=== PATIENT | female | born 2000 | race Caucasian/White ===

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

== ENCOUNTER → 2020-06-20 | Outpatient (CLI) | payer OTHER ==
[2020-06-22 14:30] LABS: CORONAVIRUS (COVID19) CSH-NRL Negative (Negative)
== END | disposition home or self-care (01) ==
LOC: LAB 16:30
PROVIDERS: Physician Assistant
DX: Z20.828 Contact with and (suspected) exposure to other viral communicable diseases (principal)
CPT/HCPCS: U0003

== ENCOUNTER → 2020-11-23 | Outpatient (CLI) | payer OTHER | END | disposition home or self-care (01) | LOC: LAB 10:50 → LAB SHORT 10:50 | DX: R30.0 Dysuria (principal) | CPT/HCPCS: 87086 ==

== ENCOUNTER 2023-06-01 10:53 | Day surgery (SDC) | payer OTHER ==
[~2023-06-01] VITALS: Ht 168 cm; Wt 137.5 kg
[2023-06-01] VITALS (13 sets, daily range): BP systolic 117–144; BP diastolic 64–85
[~2023-06-01 10:53] MED LIST changes: +ALLEGRA ALLERG180 MG PO; +BUPR150ER PO; +BUTALB-ACETAMI1 EAC7 PO; +Flonase 0.05% N16 GM; +GABA100 PO; +HYDHCL25 PO; +Inderal60 MG PO; +MONT10T PO; +Prozac40 MG PO; +VITAMIN D310 MC4 PO
[2023-06-01] MEDS ORDERED: ONDA4ODT MM (11:18)
[2023-06-01] MEDS ORDERED: TRAZ50 PO (11:18)
[2023-06-01] MEDS ORDERED: Bentyl20 MG PO (11:19)
--- NOTE | 2023-06-01 11:40 | NUR ---
History, Chart, Medications and Allergies reviewed before start of procedure. Patient confirms NPO status and agrees with scheduled surgery. Patient reports completing Chlorhexadine shower X2 prior to admission to hospital. Surgical site prepped with 2% Chlorhexidine cloth wipe. Pre-Op teaching done. Pt verbalizes understanding. Patient States Post-Procedure ride home has been arranged.
--- NOTE | 2023-06-01 17:45 | NUR ---
Discharge instructions reviewed with patient. Patient verbalizes understanding. Copy given to patient to take home. Dressing to procedure site clean, dry, intact with no visible drainage, swelling, erythema or bruising noted. Patient States Post-Procedure ride home has been arranged. Discharged via wheelchair to private car for ride home.
== END 2023-06-01 17:45 | disposition home or self-care (01) ==
LOC: ORSCMMR 10:53 → ORD 12:00 → ORSCMMR 17:45
PROVIDERS: Obstetrics & Gynecology
PROC: 0UBF4ZX Excision of Cul-de-sac, Percutaneous Endoscopic Approach, Diagnostic (ICD-10-PCS; principal; 2023-06-01 12:00)
PROC: 0UB04ZX Excision of Right Ovary, Percutaneous Endoscopic Approach, Diagnostic (ICD-10-PCS; principal; 2023-06-01 12:00)
DX: N80.3C1 Endometriosis of the right uterosacral ligament, unspecified depth (principal); D27.0 Benign neoplasm of right ovary; R00.0 Tachycardia, unspecified; Z79.899 Other long term (current) drug therapy; F41.8 Other specified anxiety disorders; E66.01 Morbid (severe) obesity due to excess calories; Z68.42 Body mass index [BMI] 45.0-49.9, adult
CPT/HCPCS: 88305; A9270; J1100; J1170; J1885; J2405; J2704; J3010; J7120

== ENCOUNTER 2023-08-27 14:47 | Emergency (ER) | payer OTHER ==
[~2023-08-27] VITALS: Ht 167.6 cm; Wt 139.2 kg
[~2023-08-27 14:47] MED LIST changes: -Norco 5-325 Ta1 EACH PO
[2023-08-27 15:07] VITALS: BP 122/64
[2023-08-27] MEDS ORDERED: Ondansetron HCl 2 MG / ML 2ML Vial IV ONE (15:10)
[2023-08-27 15:44] LABS: BASOPHILS ABSOLUTE AUTO 0.05 K/mm3 (0.00-0.23); BASOPHILS PERCENT AUTO 1 % (0-2); EOSINOPHILS PERCENT AUTO 5 % (0-6); Hematocrit 39.8 % (33.0-51.0); Hemoglobin 13.1 g/dL (11.5-16.0); IMMATURE GRAN ABSOLUTE AUTO 0.03 K/mm3 (0.00-0.10); IMMATURE GRAN PERCENT AUTO 0 % (0-1); LYMPHOCYTES ABSOLUTE AUTO 3.42 K/mm3 (0.84-5.20); LYMPHOCYTES PERCENT AUTO 37 % (21-46); MONOCYTES ABSOLUTE AUTO 0.66 K/mm3 (0.16-1.47); MONOCYTES PERCENT AUTO 7 % (4-13); Mean Corpuscular HGB 27.8 pg (26.0-34.0); Mean Corpuscular HGB Conc 32.9 g/dL (31.5-36.5); Mean Corpuscular Volume 84 fL (80-100); Mean Platelet Volume 9.2 fL (9.1-12.4); NEUTROPHILS ABSOLUTE AUTO 4.59 K/mm3 (1.96-9.15); NEUTROPHILS PERCENT AUTO 50 % (41-73); Platelet Count 376 K/mm3 (150-400); RDW Coefficient Variation 12.3 % (11.7-14.2); RDW Standard Deviation 37.3 fL (35.1-46.3); Red Blood Cell Count 4.72 M/mm3 (3.80-5.20); White Blood Cell Count 9.25 K/mm3 (4.00-11.30)
[2023-08-27 15:58] LABS: Albumin, Blood 3.8 g/dL (3.4-5.0); Bilirubin, Total 0.2 mg/dL (0.1-1.0); Bun/Creatinine Ratio 13.6 (12.0-20.0); Calcium, Blood 9.6 mg/dL (8.5-10.1); Creatinine, Blood 0.59 mg/dL (0.40-1.00); Globulin, Blood 3.7 g/dL (2.2-4.0); Potassium, Blood 3.9 mmol/L (3.5-5.5); Total Protein, Blood 7.5 g/dL (6.4-8.2)
[2023-08-27 16:21] LABS: Source, Urine Clean Catch
[2023-08-27] MEDS ORDERED: Ketorolac Tromethamine 15mg Vial IV ONE (16:40)
[2023-08-27 16:49] LABS: Appearance, Urine Hazy (Clear); Bilirubin, Urine Neg (Neg); Blood, Urine 1+ (Neg); Color, Urine Yellow (P-Yellow); Glucose Qualitative, Urine Neg (Neg); Ketones, Urine Neg (Neg); Leukocyte Esterase, Urine 1+ (Neg); Nitrite, Urine Neg (Neg); Protein, Urine Neg (Neg); Urobilinogen, Urine NORM (Normal)
[2023-08-27 17:06] LABS: Bacteria Many /hpf; Squamous Epithelial Cells Mod /hpf (Few)
[2023-08-27 17:07] LABS: Transitional Epithelial Cells Few /hpf (0-Rare)
[2023-08-27] MEDS ORDERED: Norco 5-325 Ta1 EACH PO (17:27)
== END 2023-08-27 17:31 | disposition home or self-care (01) ==
LOC: ER 14:47
PROVIDERS: Physician Assistant
DX: R10.9 Unspecified abdominal pain (principal); Q64.8 Other specified congenital malformations of urinary system; F32.A Depression, unspecified; Z87.442 Personal history of urinary calculi; Z88.1 Allergy status to other antibiotic agents; Z79.51 Long term (current) use of inhaled steroids; Z79.899 Other long term (current) drug therapy
CPT/HCPCS: 76770; 80053; 81001; 81025; 85025; 87086; 96374; 96375; 99284-25; J1885; J2405

== ENCOUNTER → 2023-08-27 | Outpatient (CLI) | payer OTHER ==
[~2023-08-27] MED LIST changes: +Bentyl20 MG PO; +Norco 5-325 Ta1 EACH PO; +ONDA4ODT MM; +TRAZ50 PO
[2023-08-27 09:02] LABS: Albumin, Blood 3.8 g/dL (3.4-5.0); Anion Gap 11 mmol/L (6-16); Blood Urea Nitrogen 8 mg/dL (8-24); Bun/Creatinine Ratio 9.4 (12.0-20.0); CO2, Blood 24 mmol/L (21-32); Calcium, Blood 9.2 mg/dL (8.5-10.1); Chloride, Blood 106 mmol/L (98-108); Creatinine, Blood 0.85 mg/dL (0.40-1.00); Glomerular Filtration Rate 99 (60-); Glucose, Blood 95 mg/dL (70-99); Phosphorus, Blood 4.4 mg/dL (2.5-4.9); Sodium, Blood 141 mmol/L (136-145)
== END | disposition home or self-care (01) ==
LOC: LAB 08:49 → LAB SHORT 08:49
PROVIDERS: Family Medicine
DX: Z09 Encounter for follow-up examination after completed treatment for conditions other than malignant neoplasm (principal); Z87.442 Personal history of urinary calculi
CPT/HCPCS: 80069

== ENCOUNTER → 2023-11-05 | Outpatient (CLI) | payer OTHER ==
[~2023-11-05] MED LIST changes: +Norco 5-325 Ta1 EACH PO
[2023-11-05 20:28] LABS: Bacterial Vaginosis PCR Negative (NEGATIVE); Candida Group, PCR NOT DETECTED (NOT DETECT); Candida glabrata-krusei, PCR NOT DETECTED (NOT DETECT)
== END | disposition home or self-care (01) ==
LOC: LAB SHORT 12:00 → LAB 12:00
PROVIDERS: Family Medicine
DX: N89.8 Other specified noninflammatory disorders of vagina (principal); R30.0 Dysuria
CPT/HCPCS: 87086; 87481; 87661; 87801

== ENCOUNTER 2023-12-27 12:40 | Day surgery (SDC) | payer OTHER ==
[~2023-12-27] VITALS: Ht 167.6 cm; Wt 140.1 kg
[~2023-12-27 12:40] MED LIST changes: +Lactated Ringer's 1,000 ML IV ONE
[2023-12-27] MEDS ORDERED: Bentyl20 MG (13:08)
[2023-12-27] MEDS ORDERED: IBUP800 (13:08)
[2023-12-27] MEDS ORDERED: MIRALAX1714 (13:09)
[2023-12-27] MEDS ORDERED: DULCOLAX5 MG (13:09)
[2023-12-27] MEDS ORDERED: LOPE2C (13:09)
[2023-12-27] MEDS ORDERED: Lactated Ringer's 1,000 ML IV ONE (13:51)
[2023-12-27] MEDS ORDERED: propofoL 50 ML IV ONE ×2 (14:52→15:11)
[2023-12-27 15:54] VITALS: BP 124/88
== END 2023-12-27 15:48 | disposition home or self-care (01) ==
LOC: ORSCSDS 12:40
PROVIDERS: Internal Medicine Gastroenterology
PROC: 0DB68ZX Excision of Stomach, Via Natural or Artificial Opening Endoscopic, Diagnostic (ICD-10-PCS; principal; 2023-12-27 13:45)
PROC: 0DB98ZX Excision of Duodenum, Via Natural or Artificial Opening Endoscopic, Diagnostic (ICD-10-PCS; principal; 2023-12-27 13:45)
DX: R10.13 Epigastric pain (principal); R11.0 Nausea; K76.0 Fatty (change of) liver, not elsewhere classified; K58.2 Mixed irritable bowel syndrome; I10 Essential (primary) hypertension; E66.01 Morbid (severe) obesity due to excess calories; Z68.43 Body mass index [BMI] 50.0-59.9, adult; Z79.899 Other long term (current) drug therapy
CPT/HCPCS: 88305; 88342; J2704; J7120

== ENCOUNTER → 2024-07-17 | Outpatient (CLI) | payer OTHER ==
[~2024-07-17] MED LIST changes: +Bentyl20 MG; +DULCOLAX5 MG; +IBUP800; +LOPE2C; -Lactated Ringer's 1,000 ML IV ONE; +MIRALAX1714
[2024-07-17 12:03] LABS: Source, Urine Clean Catch
[2024-07-17 13:23] LABS: Appearance, Urine Hazy (Clear); Bilirubin, Urine Neg (Neg); Blood, Urine Neg (Neg); Color, Urine Yellow (P-Yellow); Glucose Qualitative, Urine Neg (Neg); Ketones, Urine Neg (Neg); Leukocyte Esterase, Urine 2+ (Neg); Nitrite, Urine Neg (Neg); Protein, Urine 1+ (Neg); Urobilinogen, Urine 1+ (Normal)
[2024-07-17 13:35] LABS: Bacteria Many /hpf; Red Blood Cells, Urine 0-2 /hpf (0-2); Squamous Epithelial Cells Few /hpf (Few)
== END ==
LOC: LAB SHORT 11:59 → LAB 11:59
PROVIDERS: Obstetrics & Gynecology
DX: R39.9 Unspecified symptoms and signs involving the genitourinary system (principal)
CPT/HCPCS: 81001; 87086; G0123

== ENCOUNTER 2025-02-02 12:12 | Day surgery (SDC) | payer OTHER ==
[~2025-02-02] VITALS: Ht 167.6 cm; Wt 99.2 kg
[2025-02-02] VITALS (16 sets, daily range): BP systolic 111–133; BP diastolic 66–84
[~2025-02-02 12:12] MED LIST changes: +ACET500 PO; +Budeprion Xl300 MG PO; +DULOXETINE HCL60 M1 PO; +FAMO40 PO; -GABA100 PO; +GABA600 PO; -IBUP800; +IBUP800 PO; +LC-655118 MG PO; +LESSINA-28 TAB1 EACH PO; +NAPR220 PO; +OMEGA-3 FISH O1 EA21; +OXYCODONE-ACET1 EAC3 PO; +RIZATRIPTAN10 M3 PO; +TRAM50 PO; +TURMERIC500 M2; +ZANAFLEX413 PO; +ZEBUTAL 50-3251 EAC1 PO; +ZEPBOUND10 MG/0.5 SC
[2025-02-02] MEDS ORDERED: HYOS.125 SL (12:42)
--- NOTE | 2025-02-02 12:54 | NUR ---
DR ORTIZ AT BEDSIDE SPEAKING WITH PATIENT.
--- NOTE | 2025-02-02 13:21 | NUR ---
PATIENT CARE TURNED OVER TO CARYL FERNANDES RN. REPORT GIVEN.
[2025-02-02] MEDS ORDERED: Midazolam HCl 1MG / ML 2ML Vial ONE (14:36)
[2025-02-02] MEDS ORDERED: FentaNYL Citrate 50 MCG/ML 2 ML Injection ONE ×2 (14:36→18:35)
[2025-02-02] MEDS ORDERED: Bupivacaine 0.5% W/EPI 1:200000 SDV 30 ML Vial ONE (15:11)
[2025-02-02] MEDS ORDERED: Rocuronium Bromide 10 MG/ML 5ML Injection IV ONE ×2 (15:14→16:47)
[2025-02-02] MEDS ORDERED: Ondansetron HCl 2 MG / ML 2ML Vial ONE (15:40)
[2025-02-02] MEDS ORDERED: Ketorolac Tromethamine 30mg Vial ONE (15:40)
[2025-02-02] MEDS ORDERED: Dexamethasone Sod Phos 10 MG/ML 1ML VIAL ONE (15:40)
[2025-02-02] MEDS ORDERED: HYDROmorphone HCl/Pf 1MG SYR ONE ×2 (15:40→18:35)
[2025-02-02] MEDS ORDERED: FentaNYL Citrate 50 MCG/ML 2 ML Injection IV PRN ×5 (16:05→18:40)
[2025-02-02] MEDS ORDERED: HYDROmorphone HCl/Pf 1MG SYR IV PRN ×4 (16:05→18:10)
[2025-02-02] MEDS ORDERED: Ondansetron HCl 2 MG / ML 2ML Vial IV PRN ×3 (16:05→18:35)
[2025-02-02] MEDS ORDERED: Phenylephrine HCl 100 MCG/ML-NS 10MLSYR (1MG/10ML) ONE (16:23)
[2025-02-02] MEDS ORDERED: Sugammadex Sodium 200 MG/2ML SDV (100 MG/ML) ONE (18:09)
[2025-02-02] MEDS ORDERED: HydrALAZINE HCl 20 MG / ML 1ML Vial IV PRN (18:10)
[2025-02-02] MEDS ORDERED: ePHEDrine Sulfate 50 MG/ML 1ML Injection IV PRN (18:15)
--- NOTE | 2025-02-02 19:58 | NUR ---
ARRIVAL TO UNIT PT ARRIVED TO UNIT VIA GOURNEY FROM PACU. A&O x4, RESPONDS TO QUESTIONS APPROPRIATELY & FOLLOWS COMMANDS. ABLE TO AMBULATE TO RESTROOM c SBA R/T WEAKNESS. LAZARO PAD REPLACED. VOIDING - RED URINE, NO CLOTS. ABD LAP SITE x5 c EXOFEN C/D/I. PT REPORTS ABD PAIN TOLERABLE 10/23. FAMILY AT BEDSIDE. VSS. NO NEEDS STATED. ORIENTED TO ROOM, CALL LIGHT IN REACH.
[2025-02-02] MEDS ORDERED: DULoxetine HCL 60 MG Capsule DR PO SCH (21:00)
[2025-02-03] MEDS ORDERED: Ketorolac Tromethamine 30mg Vial IV SCH
[2025-02-03 04:36] VITALS: BP 132/83
--- NOTE | 2025-02-03 04:42 | NUR ---
SHIFT SUMMARY POD 1 HERNIA REPAIR c MESH & ENDOMETROSIS FULGURATION. NO ACUTE CHANGES OVERNIGHT. VSS. TOLERATING ORALS, DENIES N/V. LAP SITES x5 c EXOFEN C/D/I. PT DENIES PASSING FLATUS. PT ENDORSES ABD PAIN. VOIDING IND, YELLOW URINE - NO SANG DRAINAGE/CLOTS PRESENT. AMB IND. ANTICIPATED DISCHARGE TODAY. CALL LIGHT IN REACH, BED IN LOWEST POSITION, WILL REPORT TO DAY RN.
[2025-02-03 07:07] VITALS: BP 130/83
--- NOTE | 2025-02-03 08:41 | NUR ---
dc instruct reviewed. stated understanding. awaiting parents for dc.
[2025-02-03 21:14] VITALS: BP 148/74
== END 2025-02-03 09:57 | disposition home or self-care (01) ==
LOC: ORSCMMR 12:12 → ORD 13:30 → ORSCMMR 13:30 → SURS 19:25 → ORSCMMR 02-03 09:57
PROVIDERS: Obstetrics & Gynecology
PROC: 0U544ZZ Destruction of Uterine Supporting Structure, Percutaneous Endoscopic Approach (ICD-10-PCS; principal; 2025-02-02 13:30)
PROC: 0U5F4ZZ Destruction of Cul-de-sac, Percutaneous Endoscopic Approach (ICD-10-PCS; principal; 2025-02-02 13:30)
DX: N80.9 Endometriosis, unspecified (principal); I10 Essential (primary) hypertension; E28.2 Polycystic ovarian syndrome; K21.9 Gastro-esophageal reflux disease without esophagitis; F41.9 Anxiety disorder, unspecified; F32.A Depression, unspecified; E66.9 Obesity, unspecified; Z68.35 Body mass index [BMI] 35.0-35.9, adult; Z79.899 Other long term (current) drug therapy
CPT/HCPCS: 88305; A9270; C1781; J1100; J1171; J1885; J2250; J2371; J2405; J2704; J3010; J7120